=== PATIENT | male | born 1960 ===

== ENCOUNTER 2025-01-20 07:39 | Outpatient (AMB) | payer MEDICARE, MEDICAID, SELFPAY ==
[2025-01-20 07:42] VITALS: BMI 31.5
--- NOTE | 2025-01-20 07:42 | A.PHYSOV ---
Vital Signs 01/20/25 07:42 Height 5 ft 6 in Weight 195 lb BMI 31.5 Intake Visit Reasons: Right Shoulder Injection -not due yet- Director Of Retention Required: No Allergies No Known Allergies Allergy (Verified 01/20/25 07:43) HPI Comments Details: History of Present Illness The patient is a 64-year-old male presenting with persistent neck pain, left cervical radiculitis, and left shoulder pain. He has responded well to minimally invasive care, with a left C7 transforaminal injection on October 06, 2024, providing an 80% reduction in pain. The patient reports improved mobility in his neck and shoulder following the procedure. On October 28, 2024, he received a left shoulder subacromial injection and has not been seen since that procedure. The patient has a longstanding history of lumbar radiculitis, having undergone multiple left L3 transforaminal epidural steroid injections and caudal epidural injections between 2018 and early 2023. Cervical epidural injections have been repeated on multiple occasions in the past. Pain Description - Onset: Persistent neck pain and left cervical radiculitis - Quality: Improved mobility post-procedure - Location: Neck and left shoulder - Radiation: Left cervical radiculitis - Relief: 80% reduction in pain post left C7 transforaminal injection Procedures: Left L3 TFESI 12/30/2018 Left L3 TFESI 09/08/2019 Left L3 TFESI 06/14/2020 Left L3 TFESI 10/11/2020 Caudal 01/03/2021 Caudal 05/30/2021 Caudal 11/07/2021 Left C7-T1 TFESI 05/08/2022 Left L3 TFESI 09/11/2022 Left C7 TFESI 01/22/2023 Left shoulder subacromial injection 02/13/2023 Left L3 TFESI 03/26/2023 Left C7 TFESI 06/25/2023 Left shoulder subacromial injection 07/10/2023 Left C7 TFESI 09/28/2024 80% pain reduction Left shoulder subacromial injection 10/28/2024 Left shoulder subacromial and glenohumeral joint injections 01/20/2025 Results [facility] Surgical History (Updated 01/14/25 @ 14:34 by Malaika Quispe MA) History of lumbar fusion History of hernia repair (Unknown) Social History (Updated 01/20/25 @ 07:44 by Malaika Quispe MA) Alcohol intake: current Alcohol intake frequency: holidays/special occasions only Patient Tobacco Use Status: Never used Tobacco Current occupational status: retired Review of Systems Narrative Review of Systems - Musculoskeletal: Reports persistent neck pain and left shoulder pain - Neurological: Denies focal neurological deficits Physical Exam Exam Exam: Physical Exam - General: Patient appears in acute distress, appropriately conversant and oriented - Cervical Spine: Restricted range of motion in side bending and extension, negative Spurling maneuver - Neurological: Nonfocal examination of upper and lower extremities, no upper motor neuron signs - Lumbar Spine: Restricted extension, negative dural tension signs - Shoulders: Preserved range of motion, positive Mitchell and Neer signs on left shoulder, negative shoulder apprehension and drop arm tests Vital Signs: BMI result Body Mass Index 31.5 Office Procedures AMB Shoulder Injection AMB Shoulder Injection Procedure Details: After informed consent was obtained, posterior aspect of the left shoulder was prepped with Betadine. 1.5 in 22 gauge hypodermic needle was introduced percutaneously and advanced into the subacromial area. After negative aspiration for blood total volume of 6 cc containing 40 mg of triamcinolone and 2% lidocaine was injected without resistance. Needle was redirected into the glenohumeral joint and additional 6 cc of solution containing 40 mg of triamcinolone and 2% lidocaine were injected there without resistance and after negative aspiration for blood. Patient tolerated procedure very well without complications with excellent anesthetic response. Shoulder Injection - : Left All charges added?: Procedure code (CPT) selection complete Office Meds Kenalog 40 mg/mL suspension for injection Performing Provider: Cole Cheney DO Performing Location[facility] Administered by: Cole Cheney DO on 01/20/25 08:03 Dose Route Admin Location Dispensed Lot Number Expiration Date [facility] Mushroom Growing Supervisor 80 mg intra-articular 2 mL [id number] [employer] Total Dispensed Waste 2 mL 0 % lidocaine (PF) 20 mg/mL (2 %) injection solution Performing Provider: Cole Cheney DO Performing Location: [facility] Administered by: Cole Cheney DO on 01/20/25 08:03 Dose Route Admin Location Dispensed Lot Number Expiration Date [facility] Mushroom Growing Supervisor 200 mg intra-articular 10 mL [id number] Total Dispensed Waste 10 mL 0 % Assessment & Plan Assessment & Plan (1) DJD of left shoulder: Comment: Proceed with left shoulder injection today Code(s): M19.012 - Primary osteoarthritis, left shoulder Category: Medical (2) Rotator cuff impingement syndrome of left shoulder: Code(s): M75.42 - Impingement syndrome of left shoulder Category: Medical (3) Neck pain: Code(s): M54.2 - Cervicalgia Category: Medical (4) Cervical radiculitis: Comment: Cervical injections will be repeated in the future as necessary Code(s): M54.12 - Radiculopathy, cervical region Category: Medical (5) Lumbar radiculitis: Comment: Lumbar injections will be repeated in the future as necessary Code(s): M54.16 - Radiculopathy, lumbar region Category: Medical Plan Pain Management - Affect: Not discussed - Analgesia: Left C7 transforaminal injection provided 80% pain reduction - Adverse Effects: Not discussed - Activities of Daily Living: Improved neck and shoulder mobility - Aberrant Drug Related Behaviors: Not discussed Plan Patient was informed and verbally consented to the use of an ambient scribe for clinic note documentation during this visit. 1. Neck Pain The patient has been experiencing persistent neck pain, which has been managed with minimally invasive procedures. A left C7 transforaminal injection on October 06, 2024, resulted in an 80% reduction in pain, indicating a positive response to the treatment. 2. Left Cervical Radiculitis The left cervical radiculitis has been addressed with a left C7 transforaminal injection, which provided significant pain relief. The patient reports improved mobility in the neck and shoulder following the procedure. 3. Left Shoulder Pain The patient received a left shoulder subacromial injection on October 28, 2024, to manage the shoulder pain. The effectiveness of this intervention has not been assessed since the procedure. 4. Lumbar Radiculitis The patient has a history of lumbar radiculitis, treated with multiple left L3 transforaminal epidural steroid injections and caudal epidural injections between 2018 and early 2023. Cervical epidural injections have also been administered on multiple occasions in the past. Discussion Notes Patient Instructions Orders: Orders AMB Shoulder Injection Today M19.012 - Primary osteoarthritis, left shoulder, M75.42 - Impingement syndrome of left shoulder Coding Level of Care Code Est Pt Level 4 (21893) Complex EM visit Add On G2211 Diagnoses DJD of left shoulder M19.012 Rotator cuff impingement syndrome of left shoulder M75.42 Neck pain M54.2 Cervical radiculitis M54.12 Lumbar radiculitis M54.16 CPT Codes AMB Shoulder Injection - Hip/Bursa Injection - : Left ([id number]) Time Spent (min) 30
--- OUTSIDE RECORDS SUMMARY | 2025-01-20 07:43 | XMS_ITS | Encounter Summary ---
Author Organization [facility] Address [address] [place] [address] Care Team Providers Care Supervisor Core Drilling Name Role Phone Ayde Lopez MD Primary Care Provider Encounter Details Date Type Department Care Team (Late st Contact Info) Description 02/14/[address] [facility] - Main Lab [address] [place] [address] Panfilo Beasley MD [address] [facility] [address] [place] [id number] Calculus of kidney Social History Tobacco Use Types Packs/Day Years Used Date Smoking Tobacco: Never Smokeless Tobacco: Never Alcohol Use Standard Drinks/Week Comments Yes 0 (1 standard drink = 0.6 oz pur e alcohol) Sex and Gender Information Value Date Recorded Sex Assigned at Male 05/08/2024 6:03 AM EST Legal Sex Male 4:56 AM EST Gender Identity Male 05/08/2024 6:03 AM EST Sexual Orientation Straight 05/08/2024 6: 03 AM EST documented as of this encounter Plan of Treatment Not on file documented as of this encounter Procedures Procedure Name Priority Date/Time Associated Diagnosis Comments STONE ANALYSIS Routine 02/14/2024 12:00 AM EST Calculus of kidney documented in this encounter Results * Stone analysis (02/14/2024 12:00 AM EST) Component(s) See below 02/20/2024 10:00 AM EST [facility] Comment: 97% Calcium oxalate monohydrate (Whewellite) 3% Uric acid anhydrous Stone Weight 0.0328 g 02/20/2024 10:00 AM EST [facility] Comment: This test was developed and its performance characteristics determined by [facility] in a manner consistent with CLIA requirements. This test has not been cleared or approved by the U.S. Food and Drug Administration. Test performed at [facility], [address], [place] [address] Tiffanie Hernandez MD, PhD - Fiscal Agent Calculus 02/14/2024 02/14/2024 12: 30 PM EST Panfilo Beasley MD LAB BODY FLUIDS AND STOOLS ORDER TALISHA Final Result [facility] [address] [place] [address] documented in this encounter Visit Diagnoses Diagnosis Calculus of kidney documented in this encounter Care Teams Supervisor Core Drilling Relationship Specialty Start Date End Date Ayde Lopez MD [address] [place] [address] PCP - General Internal Medicine 12/04/24 documented as of this encounter
--- OUTSIDE RECORDS SUMMARY | 2025-01-20 07:43 | XMS_ITS | Clinical Summary ---
Author Organization [facility] Address [address] [place] [address] Care Team Providers Care Biology Specialist Name Role Phone Unavailable Primary Care Provider Unavailabl e Source Comments PLEASE NOTE, if this patient is a minor, it may be UNLAWFUL to discuss sensitive information that is contained in these records (such as FAMILY PLANNING, MENTAL HEALTH or SUBSTANCE ABUSE) with the minor patient's parent or other person without the patient's specific authorization.[facility] Allergies No known active allergies Medications No known medications Active Problems No known active problems Encounters Date Type Department Care Team Description 01/07/2025 2:20 PM EDT Office Visit [facility] [address] [place] [address] Roslyn Stoner RHD from Last 3 Months Social History Tobacco Use Types Packs/Day Years Used Date Smoking Tobacco: Never Smokeless Tobacco: Never Tobacco Cessation:Counseling Given: Not Answered Social Connections Answer Date Recorded Connectedness 0 11/22/2023 Financial Resource Strain Answer Date R ecorded Financial Resource Strain 0 2021 Stress Answer Date Recorded Stress 0 07/28/2021 Physical Activity Answer Date Recorded Physical Activity 0 07/28/2021 Food Insecurity Answer Date Recorded Food 0 12/06/2023 Transportation Needs Answer Date Record ed Transportation 0 07/28/2021 Housing Stability Answer Date Recorded Housing 0 07/28/2021 Safety and Environment Answer Date Bartolome rded Safety 0 07/28/2021 Utilities Answer Date Recorded Utilities 0 07/28/2021 Employment Answer Date Recorded Stress 0 11/22/2023 Sex and Gender Information Value Date Recorded Sex Assigned at Not on file Legal Sex Male 11:36 AM PDT Gender Identity Not on file Sexual Orientation Not on file Last Filed Vital Signs Vital Sign Reading Time Taken Comments Blood Pressure 131/86 01/07/2025 4:55 PM EDT Pulse 85 01/07/2025 4:55 PM EDT Temperature - - Respiratory Rate - - Oxygen Saturation - - Inhaled Oxygen Concentration - - Weight - - Height - - Body Mass Index - - Plan of Treatment Upcoming Encounters Date Type Department Care Team (Late st Contact Info) Description 07/08/2025 1:40 PM EDT Office Visit [facility] [address] [place] [address] Roslyn Stoner RHD [address] [place] [address] Health Maintenance Due Date Last Done Comments Anxiety Screening 1961 Hepatitis C Screening 1961 HIV Screening 1961 Syphilis Screening 07/13/1975 Imm-Hepatitis A (1 of 2 - Ri sk 2-dose series) 1980 CT Colonography 2006 Colonoscopy 2006 Colorectal Cancer Screening 2006 FIT/gFOBT 2006 Fecal DNA 2006 Flexible Sigmoidoscopy 2006 Imm-Zoster, Recombinant (2 of 2) 10/07/2020 08/13/19 21 Alcohol and Drug Screen 03/12/2024 Depression Annual Screen 03/12/2024 [id number] ( season) 2024 021, 07/15/2020 Diabetes Screening 05/10/2025 05/10/2022, 0 07/06/2021, 10/07/2018 Hypertension Screening (#1) 01/07/2026 Tobacco Screening 01/07/2026 01/07/2025 Dental BW 01/09/2026 01/07/2025, 05/11, 07/28/2021 Dental Examination 01/09/2026 01/07/2025, 0 06/07/2022, 07/28/2021 Dental Perio Charting 01/09/2026 01/07/2025, 023 Dental Prophy 01/09/2026 01/07/2025, 05/11, 07/28/2021 Dental FMX/Pano 07/30/2026 07/28/2021 Lipid Screening 10/30/2028 10/31/2023, 05/10/2022 Imm-DTaP/Tdap/Td (4 - Td or Tdap) 10/30/2032 10/30/2022, 01/30/2021, 07/19/2012 Imm-Hepatitis B Completed 08/28/2013, 11/2012, 11/13/2012 Imm-Influenza Completed 12/04/2024, 08/2024, 05/02/2023, Additional history exists Imm-Pneumococcal 50+ Completed 12/04/2024 Procedures Procedure Name Priority Date/Time Associated Diagnosis Comments 9 INTRAORAL - PERIAPICAL FIRST RADIOGRAPHIC IMAGE Routine 01/07/2025 2:20 PM EDT Encounter for dental examination DENTAL CASE MANAGEMENT - MOTIVATIONAL INTV Routine 01/07/2025 2:20 PM EDT Encounter for dental examination PROPHYLAXIS - ADULT Routine 01/07/2025 2 :20 PM EDT Encounter for dental examination BITEWINGS - FOUR RADIOGRAPHIC IMAGES Routine 01/07/2025 2:20 PM EDT Encounter for dental examination COMP PERIODONTAL EVALUATION - NEW/EST PATIENT Routine 01/07/2025 2:20 PM EDT Encounter for dental examination PERIODIC ORAL EVALUATION ESTABLISHED PATIENT Routine 01/07/2025 2:20 PM EDT Encounter for dental examination CARIES RISK ASSESSMENT & DOC FINDING LOW RISK Routine 01/07/2025 2:20 PM EDT Encounter for dental examination NUTRITIONAL COUNSELING CONTROL OF DENTAL DISEASE Routine 01/07/2025 2:20 PM EDT Encounter for dental examination ORAL HYGIENE INSTRUCTIONS Routine 01/07/2025 2:20 PM EDT Encounter for dental examination ORAL CANCER SCREENING Routine 01/07/2025 2:20 PM EDT Encounter for dental examination CASE PRESENTATION SUBS DTL & EXTENSIVE TX PLN Routine 01/07/2025 2:20 PM EDT Encounter for dental examination INTRAORAL - COMP SERIES OF RADIOGRAPHIC IMAGES Routine 07/28/2021 4:20 PM EDT Periodontitis from Last 3 Months or Most Recently Relevant to Health Maintenance [place] [id number]
--- OUTSIDE RECORDS SUMMARY | 2025-01-20 07:43 | XMS_ITS | Clinical Summary ---
Author Organization [facility] Address [address] [place] [address] Phone Care Team Providers Care Vein Pumper Name Role Phone Ayde Lopez MD Primary Care Provider [phone] Allergies No known active allergies Medications sildenafiL (VIAGRA) 50 mg tablet 5 Active tamsulosin (FLOMAX) 0.4 mg 24 hr capsule TAKE 1 CAPSULE BY MOUTH DAILY 90 capsule 1 5 Active traZODone (DESYREL) 150 mg tablet Take 1 tablet (150 mg total) by mouth at bedtime. at bedtime. 90 tablet 1 5 Active simvastatin (ZOCOR) 40 mg tablet Take 1 tablet (40 mg total) by mouth at bedtime. at bedtime. 90 tablet 1 5 Active gabapentin (NEURONTIN) 300 mg capsule Take 1 capsule (300 mg total) by mouth 3 (three) times a day. 90 capsule 1 5 Active fluticasone propionate (FLONASE) 50 mcg/actuation nasal spray Administer 1 spray into each nostril if needed for allergies. 16 g 3 5 Active allopurinoL (ZYLOPRIM) 300 mg tablet Take 1 tablet (300 mg total) by mouth 1 (one) time each day. 90 tablet 1 5 Active cetirizine (ZyrTEC) 10 mg tablet Take 1 tablet (10 mg total) by mouth if needed for allergies. 90 tablet 1 5 Active famotidine (PEPCID) 20 mg tablet Take 1 tablet (20 mg total) by mouth 2 (two) times a day. 180 tablet 1 5 Active FLUoxetine (PROzac) 40 mg capsule Take 1 capsule (40 mg total) by mouth 1 (one) time each day. 90 capsule 1 5 Active Active Problems Problem Noted Date Diagnosed Date Gout 11/22/2023 Degenerative disc disease, cervical 12/22/2021 Kidney stones 10/11/2018 Overview (11/22/2023): Bilateral - no hydro on us 09/2018 GERD (gastroesophageal reflux disease) 8 Depression 04/19/2016 Mixed hyperlipidemia 06/03/2015 BPH (benign prostatic hyperplasia) 01/28/2015 Overview (11/22/2023): Urology (10/19/17): Positive microscopic hematuria in the setting of irritative voiding symptoms and risk factors. Proceed with appropriate urine testing, pain basal renal function labs, CT urogram abdomen and pelvis. Patient will tentatively undergo diagnostic cystoscopy Urology (08/20/17): Patient scheduled for bilateral URS next week. However, patient defer surgery. Stents removed today. Return to clinic in 3 months. Urology (07/19/17): CAT scan noted from 06/2017. Multiple bilateral nephrolithiasis measuring up to 8 mm in the right lower pole and 5 mm in the left lower pole. Seen by Dr. Gonzales Uro (03/01/17): for BPH, cont current meds. For ED, cialis is giving him headaches, other options were discussed. Erectile dysfunction 01/28/2015 Resolved Problems Problem Noted Date Diagnosed Date Resolved Date Adenomatous polyp of sigmoid colon 03/17/2024 12/04/2024 Overview (03/17/2024): Patient underwent his colonoscopy on 12/18/2023 which revealed a 3 mm polyp in the sigmoid colon. Internal hemorrhoids. Biopsy of the colon polyp revealed incipient tubular adenoma. Anal stenosis 11/04/2017 12/04/2024 Overview (11/22/2023): Underwent proctosigmoidoscopy, partial lateral internal sphineterectomy, dermal flap anoplasty, hemorrhoidectomy on 8.17.18 Nuclear sclerosis of both eyes 05/24/2017 12/04/2024 Pinguecula of both eyes 05/24/201711/11 Anal fissure 06/06/2016 12/04/2024 Encounters Date Type Department Care Team Description 12/04/2024 2:30 PM EDT [facility] [address] [place] [address] Karina Barron, ZAKIA Gastroesophageal reflux disease without esophagitis (Primary Dx); Kidney stones; Benign prostatic hyperplasia without lower urinary tract symptoms; Need for vaccination against Streptococcus pneumoniae; Degenerative disc disease, cervical; Gout, unspecified cause, unspecified chronicity, unspecified site; Mixed hyperlipidemia; Depression, unspecified depression type; Erectile dysfunction, unspecified erectile dysfunction type; Immunization due from Last 3 Months Immunizations Immunization Administration Dates Next Due Hepatitis B (Etedskq-T-Nsjci , Recombivax HB-Adult) 19yo and older 08/28/2013,12/18/2012,11/13/2012 Influenza Quadravalent, MDCK , 0.5ml, preservative free (Flucelvax) 6mo and older 05/02/2023,12/15/2021,11/24/2020,2017 Influenza Quadrivalent, 0.5m l, preservative free (Fluarix; FluLaval; Fluzone) ages 6mo and older (Afluria) 3yo and older 12/02/2019 Influenza trivalent, MDCK, 0 .5mL, preservative free (Flucelvax) 6mo and older 12/04/2024,03/17/2024 Moderna SARS-CoV-2 COVID-19, mRNA, LNP-S, preservative free 08/12/2020,07/15/2020 Pneumococcal conjugate 20 va lent (Prevnar 20, PCV 20) 2mo and older 12/04/2024 Td Tetanus diptheria (Tdvax) 7yo and older 10/30/2022 Tdap Tetanus diptheria acell ular pertussis (Boostrix; Adacel) 7yo and older 01/30/2021,07/19/2012 Zoster recombinant (Shingrix ) 19yo and older 08/12/2020 Surgical History Surgery Date Site/Laterality Comments OTHER SURGICAL HISTORY 1997 PROCEDURE: CT ARTHRD ANT INTERBODY MIN DSC LUMBAR; COMMENT: for herniated disc COLONOSCOPY 11/05/12 PROCEDURE: HISTORICAL COLONOSCOPY; COMMENT: normal; repeat in ten yrs ESOPHAGOGASTRODUODENOSCOPY May 2014 PROCEDURE: CT ESOPHAGOGASTRODUODENOSCOPY TRANSORAL DIAGNOSTIC BACK SURGERY HARDWARE,? 1995 LITHOTRIPSY KIDNEY STONE SURGERY CYSTOSCOPY OTHER SURGICAL HISTORY 01/11/2024 - 02/09/2024 ESWL Medical History Medical History Date Comments Gout 2011 DX:Gout; COMMENT : 2 ER visit in 2012 Low back pain DX:Low back pain Mixed hyperlipidemia 06/03/2015 DX:Mixed hy perlipidemia Depression 04/19/2016 DX:Depression GERD (gastroesophageal reflu x disease) 08/27/2017 DX:GERD (gastroesophageal re flux disease) Anal stenosis 11/04/2017 DX:Anal stenosis Kidney stones 10/11/2018 DX:Kidney stones ; COMMENT: Bilateral - no hydro on us 09/2018 Degenerative disc disease, cervical 12/22/2021 DX:Degenerative disc disease, cervical Family History Medical History Relation Name Comments No Known Problems Aunt No Known Problems Brother Other: blood cancer Father No Known Problems Maternal Grandfather No Known Problems Maternal Grandmother Cataracts Mother Glaucoma Mother Hypertension Mother Other: no gout Other 1 No Known Problems Other 2 No Known Problems Paternal Grandfather No Known Problems Paternal Grandmother No Known Problems Sister No Known Problems Uncle Blindness Neg Hx Colon cancer Neg Hx Macular degeneration Neg Hx Strabismus Neg Hx Relation Name Status Comments Aunt Brother Father Maternal Grandfather Maternal Grandmother Mother Other 1 Other 2 Paternal Grandfather Paternal Grandmother Sister Uncle Social History Tobacco Use Types Packs/Day Years Used Date Smoking Tobacco: Former Cigarettes Smokeless Tobacco: Never Tobacco Cessation:Counseling Given: Not Answered Alcohol Use Standard Drinks/Week Comments Yes 0 (1 standard drink = 0.6 oz pur e alcohol) SOCAIL Interpersonal Safety Answer Date Record ed Physical Abuse Unrecognized value 08/11/2024 Verbal Abuse Unrecognized value 08/11/2024 Sex and Gender Information Value Date Recorded Sex Assigned at Male 05/08/2024 6:03 AM EST Legal Sex Male 4:56 AM EST Gender Identity Male 05/08/2024 6:03 AM EST Sexual Orientation Straight 05/08/2024 6: 03 AM EST Obstetrics History Last Filed Vital Signs Vital Sign Reading Time Taken Comments Blood Pressure 134/84 12/04/2024 2:08 PM EDT aut o cuff Pulse 84 12/04/2024 2:08 PM EDT Temperature 36.1 C (97 F) 12/04/2024 2:08 PM EDT Respiratory Rate 20 10/13/2024 2:49 PM EDT Oxygen Saturation 100% 10/13/2024 2:49 PM EDT Inhaled Oxygen Concentration - - Weight 91.6 kg (202 lb) 12/04/2024 2:08 PM EDT Height 167.6 cm (5' 6 ) 10/13/2024 2:49 PM EDT Body Mass Index 32.6 10/13/2024 2:49 PM EDT Plan of Treatment Health Maintenance Due Date Last Done Comments HIV Screening 02/12/2022 Medicare Annual Wellness Visit 02/12/2022 Social Influencers of Health Screening 02/12/2022 Depression Screening 03/12/2024 COVID-19 Vaccine ( season) 2024 04/30/2024, 01/19/2022, 04/04/2021, Additional history exists Cholesterol Screening (Lipid Panel) 10/30/2028 10/31/2023, 10/31/2023 DTaP,Tdap,and Td Vaccines (4 - Td or Tdap) 10/30/2032 10/30/2022, 01/30/2021, 07/19/2012 Colorectal Cancer Screening: Colonoscopy 12/17/2033 12/18/2023 RSV Immunization Adult Patients (1 - 1-dose 75+ series) 2036 Hepatitis B Vaccines Completed 08/28/2013, 12/18/2012, 11/13/2012 Hepatitis C Screening Completed 06/02/2015 Zoster Vaccines Completed 04/30/2024, 08/12/2020 Influenza Vaccine Completed 12/04/2024, , 05/02/2023, Additional history exists Pneumococcal Vaccine: 50+ Years Completed 12/04/2024 HIB Vaccines Aged Out No longer eligi ble based on patient's age to complete this topic HPV Vaccines Aged Out No longer eligi ble based on patient's age to complete this topic Hepatitis A Vaccines Aged Out No long er eligible based on patient's age to complete this topic IPV Vaccines Aged Out No longer eligi ble based on patient's age to complete this topic MMR Vaccines Aged Out No longer eligi ble based on patient's age to complete this topic Meningococcal ACWY Vaccine Aged Out N o longer eligible based on patient's age to complete this topic Meningococcal B Vaccine Aged Out No l onger eligible based on patient's age to complete this topic RSV Immunization Patients Under 20 months Aged Out No longer eligible based on patient's age to complete this topic Varicella Vaccines Aged Out No longer eligible based on patient's age to complete this topic Medical Devices Implanted Type 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 Device Identifier Shelf Expiration Date Model / Serial / Lot Stent Uret Stretch Vl 7fr 22-3 - Sn/A - [id number] Implanted:Qty: 1 on 05/08/2024 by Panfilo Beasley MD at [facility] Stents Right: Ureter [employer] 11/18/2026 [id number] / N/A / [id number] Stent 7fr Multi Vl - Sna - [id number] Implanted:Qty: 1 on 05/20/2024 by Yogi Florian MD at [facility] Stents Right: Ureter [employer] 11/18/2026 [id number] / NA / [id number] Stent Uret [id number] Contr Percuflex Hydroplus - Sna - [id number] Implanted:Qty: 1 on 08/11/2024 by Panfilo Beasley MD at [facility] Stents Left: Ureter [employer] [id number] 02/03/2027 [id number] / NA / [id number] Procedures Procedure Name Priority Date/Time Associated Diagnosis Comments HM COLONOSCOPY Routine 12/18/2023 LIPID PANEL Routine 10/31/2023 HEPATITIS C SCREENING Routine 06/02/2015 from Last 3 Months or Most Recently Relevant to Health Maintenance Results * Colonoscopy (12/18/2023) Colonoscopy No Interpretation , Abstracted Anatomical Region Laterality Modality Other [facility] Provider HEALTH MAINTENANCE Final Result * Lipid panel (10/31/2023) Pathologist [facility] LDL/HDL Ratio 3 Triglycerides 197 mg/dL Cholesterol 146 mg/dL HDL 54 mg/dL LDL Cholesterol 53 mg/dL Blood Venous blood specimen / Unknown [facility] Provider LAB BLOOD ORDERABLES Prudence l Result * Hepatitis C Screening (06/02/2015) [facility] C Screening negative [facility] Provider HEALTH MAINTENANCE Final Result from Last 3 Months or Most Recently Relevant to Health Maintenance Insurance MEDICARE [place] - [place] Care Teams Vein Pumper Relationship Specialty Start Date End Date Ayde Lopez MD [address] [place] [address] PCP - General Internal Medicine 12/04/24
== END 2025-01-20 08:00 | disposition home or self-care (01) ==
LOC: HO.HPHYS 07:40
PROVIDERS: PCP Internal Medicine; Visit Provider Physical Medicine & Rehabilitation
DX: M19.012 Primary osteoarthritis, left shoulder (principal); M75.42 Impingement syndrome of left shoulder; M54.2 Cervicalgia; M54.12 Radiculopathy, cervical region; M54.16 Radiculopathy, lumbar region
CPT/HCPCS: 20610; 99214

== ENCOUNTER → 2025-01-20 07:39 | Outpatient (BNVA) | payer MEDICARE, MEDICAID, SELFPAY | PROVIDERS: PCP Internal Medicine; Visit Provider Physical Medicine & Rehabilitation | DX: M19.012 Primary osteoarthritis, left shoulder (principal); M75.42 Impingement syndrome of left shoulder; M54.2 Cervicalgia; M54.12 Radiculopathy, cervical region; M54.16 Radiculopathy, lumbar region | CPT/HCPCS: 20610; 99212; J2003; J3301 ==